=== PATIENT | male | born 1935 | race Caucasian/White ===

== ENCOUNTER 2019-03-09 17:09 | Observation (INO) | payer MEDICARE ==
--- NOTE | 2019-03-09 17:54 | Emergency Department Record ---
History of Present Illness - General Chief Complaint: Tremor Stated Complaint: TREMMORS Time Seen by Provider: 03/09/19 17:35 Source: Patient Mode of Arrival: Ambulatory Limitations: No limitations - History of Present Illness Initial comments: The patient is here due to worsening confusion and tremors for the last few days. The patient recently moved up to [place] from [place]. Per his daughter he has been having worsening confusion and tremors. The patient was seen at the this afternoon and it was recommended he be directly admitted to the hospital due to the tremors and elevated potassium. The patient did refuse the admission but then after going home he changed his mind and now is here in the ER to be admitted. There has been no hx of recent trauma, fever, vomiting, diarrhea, or back pain. The patient did have a CBC and CMP done this afternoon 4 hours ago and his potassium and CR were mildly elevated. Onset/Timin -: Days(s) - Suzanna Coma Scale Eye Response: (4) Open spontaneously Motor Response: (6) Obeys commands Verbal Response: (5) Oriented Suzanna Total: 15 - Related Data Allergies Allergy/AdvReac Type Severity Reaction Status Date / Time acyclovir Allergy HYPERSENSIT Unverified 03/09/19 17:46 IVITY rivaroxaban [From Xarelto] Allergy PT UNSURE Unverified 03/09/19 17:46 OF REACTION Travel Screening - Travel/Exposure Within Last 30 Days Have you traveled within the last 30 days?: No - Travel/Exposure Within Last Year Have you traveled outside the [place] in the last year?: No - Additonal Travel Details Have you been exposed to anyone with a communicable illness?: No - Travel Symptoms Symptom Screening: None Review of Systems Constitutional: Denies: Chills, Fever Eyes: Denies: Eye discharge ENT: Denies: Congestion Respiratory: Denies: Cough, Dyspnea Cardiovascular: Denies: Arrhythmia, Chest pain Endocrine: Reports: Fatigue Gastrointestinal: Denies: Nausea Genitourinary: Denies: Dysuria Musculoskeletal: Denies: Arthralgia Skin: Denies: Bruising Neurological: Reports: Confusion, Tremors Past Medical History - SOCIAL HISTORY Smoking Status: Never smoker Alcohol Use: None Drug Use: None - RESPIRATORY Hx Respiratory Disorders: No - CARDIOVASCULAR Hx Cardio Disorders: Yes Hx Cardiac Cath: Yes (2-3 stents) Hx Irregular Heartbeat: Yes (A-fib) - NEURO Hx Neuro Disorders: Yes Hx TIA: Yes (resolved) - GI Hx GI Disorders: Yes Hx Reflux: Yes Hx Rectal Bleeding: Yes (associated with blood thinners) - Hx Genitourinary Disorders: Yes Hx Renal Disease: Yes (elevated) - ENDOCRINE Hx Endocrine Disorders: Yes Hx Diabetes: No Hx Thyroid Disease: Yes - PSYCH Hx Psych Problems: Yes Hx Anxiety: Yes - HEMATOLOGY/ONCOLOGY Hx Hematology/Oncology Disorders: Yes Hx Blood Disorders: Yes Hx Cancer: No Family Medical History Any Significant Family History?: Yes Physical Exam - General General Appearance: Alert, Cooperative, No acute distress - Head Head exam: Atraumatic, Normocephalic - Eye Eye exam: Normal appearance, PERRL - ENT Throat exam: Normal inspection. negative: Tonsillar erythema, Tonsillar exudate - Neck Neck exam: Normal inspection, Full ROM. negative: Tenderness - Respiratory Respiratory exam: Normal lung sounds bilaterally. negative: Respiratory distress - Cardiovascular Cardiovascular Exam: Normal heart sounds, Irregular rhythm. negative: Tachycardia - GI/Abdominal GI/Abdominal exam: Soft, Normal bowel sounds. negative: Tenderness - Extremities Extremities exam: Normal inspection, Full ROM, Normal capillary refill. negative: Tenderness - Neurological Neurological exam: Alert, Other (The patient is having some facial spasms at times.). negative: Abnormal gait, Altered, Motor sensory deficit, Normal gait, Oriented X3 (The patient is only oriented to name and age.) - Psychiatric Psychiatric exam: negative: Anxious Course Vital Signs 03/09/19 03/09/19 17:27 17:32 Temperature 98.7 F 98.7 F Pulse Rate [ 106 H Pulse Ox Probe] Respiratory 20 Rate Blood Pressure 143/93 [Left Arm] Pulse Ox 96 - Reevaluation(s) Reevaluation #1: The patient is doing OK at this time. I did discuss the issues with the patient and he does agree to the admission. I also did review the lab work from this afternoon and did add coags and a UA. They are not done at this time so they will need to be completed during the admission. I also did discuss the case with Anna (ACTIVITIES SPECIALIST) and she had been planning on admitting the patient directly to the hospital but he refused. She is well aware of the issues and will check the Coags and UA after admitted. 03/09/19 19:05 Medical Decision Making - Data Complexity MDM Data: Labs Ordered and/or Reviewed, X-Ray Ordered and/or Reviewed, EKG Ordered and/or Reviewed - EKG Data -: EKG Interpreted by Me (Afib at 74, Neg ischemic changes.) - Radiology Data Radiology results: Report reviewed (Head CT: Neg for acute changes.) Disposition Disposition: Admit Clinical Impression: Tremors of nervous system Disposition: Still a Patient at [facility] Decision to Admit: Admit from ER Decision to Admit Date: 03/09/19 Decision to Admit Time: 19:12 Accepting Physician: Claribel Time Discussed w/Accepting Physician: 19:12 Condition: (2) Stable Forms: Patient Portal Access Time of Disposition: 19:12 Quality - Quality Measures Quality Measures: N/A - Blood Pressure Screening View Details: Yes Does Patient Have Any of the Following: Active Dx of HTN Blood Pressure Classification: Hypertensive Reading Systolic Measurement: 143 Diastolic Measurement: 93 Screening for High Blood Pressure: Patient Exclusion, Hx of HTN [[id number]]
--- NOTE | 2019-03-09 18:56 | CT SCAN REPORT ---
EXAMINATION: HEAD WO CONTRAST EXAM DATE: 03/09/2019 6:36 PM TECHNIQUE: Noncontrast axial images were obtained to the brain. INDICATION: confusion COMPARISON: None. ENCOUNTER: Not applicable. HAND DOMINANCE: Unknown FINDINGS: Low-attenuation areas in the periventricular and subcortical white matter. The brain parenchyma is o therwise unremarkable. No loss of strauss-white matter differentiation or sulcal effacement to indicate acute infarction. No evidence of intracranial mass. There is enlargement of the ventricles, sulci, and subarachnoid spaces. No hydrocephalus. There is arterial calcification. No intra-axial or extra-axial fluid collection. No evidence of intracranial hemorrhage. The paranasal sinuses, mastoid air cells, and orbits are unremarkable. Bilateral cataract surgery. T he calvarium is intact. IMPRESSION: 1. No CT evidence of intracranial hemorrhage or acute intracranial abnormality. 2. Extensive white matter hypoattenuation most commonly represents chronic microvascular ischemic d isease. 3. Moderate cerebral and cerebellar atrophy. Dictated by: LUKE SIMMS MD on 03/09/2019 6:47 PM. .
[2019-03-09 19:24] LABS: URINE APPEARANCE CLEAR; URINE BILIRUBIN NEGATIVE (NEGATIVE); URINE BLOOD NEGATIVE (NEGATIVE); URINE COLOR YELLOW; URINE GLUCOSE (UA) NEGATIVE (NEGATIVE); URINE KETONE NEGATIVE (NEGATIVE); URINE NITRITE NEGATIVE (NEGATIVE); URINE PROTEIN NEGATIVE (NEGATIVE); URINE UROBILINOGEN 0.2 E.U./dL (0.20 - 1.00)
[2019-03-09 19:26] LABS: URINE LEUKOCYTE ESTERASE SMALL (NEGATIVE)
[2019-03-09 19:26] LABS: INR 1.1; PROTHROMBIN TIME (PATIENT) 10.8 SECONDS (9.5-12.1)
[2019-03-09] MEDS ORDERED: ACETAMINOPHEN 325 MG TAB PO PRN (21:55)
[2019-03-09] MEDS ORDERED: DILTIAZEM HCL 120 MG ER CAPSULE PO SCH (21:55)
[2019-03-09] MEDS: MEMANTINE HCL 10 MG TABLET PO SCH (22:40)
[2019-03-10] MEDS ORDERED: LEVOTHYROXINE SODIUM 125 MCG TABLET PO SCH (07:00)
[2019-03-10] MEDS ORDERED: PANTOPRAZOLE SODIUM 40 MG TABLET PO SCH (07:00)
[2019-03-10 07:01] LABS: ABSOLUTE NEUTROPHIL COUNT 6.24; BASO % 0.3 % (0-6); EOS % 4.3 % (0-6); HEMATOCRIT 41.7 % (42.0-52.0); HEMOGLOBIN 12.7 gm/dl (14.0-18.0); LYMPH % 21.8 % (16-45); MEAN CELL VOLUME 92.3 fl (81-97); MEAN CORPUSCULAR HGB CONC 30.5 g/dl (32-36); MEAN PLATELET VOLUME 9.6 fl (7.4-10.4); MONO % 6.6 % (0-9); PLATELET COUNT 333 K/uL (130-400); RED BLOOD COUNT 4.52 M/uL (4.40-5.70); RED CELL DISTRIBUTION WIDTH 15.2 % (11.5-14.5); WHITE BLOOD COUNT W/O DIFF 9.3 K/uL (4.2-12.2)
[2019-03-10 07:15] LABS: CREATININE 1.3 mg/dL (0.7-1.2)
--- NOTE | 2019-03-10 08:43 | History & Physical ---
History of Present Illness - Date of Service Date of Service for History & Physical: 03/11/19 - History of Present Illness Admitting Diagnosis: 1. Acute Facial Spasms with confusion. History of Present Illness: The patient is here due to worsening confusion and tremors for the last few days. The patient recently moved up to [place] from [place]. Per his daughter he has been having worsening confusion and tremors and moved closer to family to help keep watch over him. He does live with a SO. The patient was seen at the this afternoon and it was recommended he be directly admitted to the hospital due to the tremors and elevated potassium. The patient did refuse the admission but then after going home he changed his mind and now is here in the ER to be admitted. There has been no hx of recent trauma, fever, vomiting, diarrhea, or back pain. The patient did have a CBC and CMP done this afternoon 4 hours ago and his potassium and CR were mildly elevated. No hx of DM or HTN. There is history of TIA per family report without any residual effect. He is anticoagulated for a-fib. Patient and partner report about a month ago in his sleep his arms became straight and stiff as boards and was spasming and shaking in his sleep. Yesterday he began having tremoring to arms, legs and face. No autonomic disorders, no family hx tremor. No new medications, supplements, dose changes. No seizure history. No nausea, vomiting, diarrhea, cough outside of usual morning cough to clear his throat. NO falls, LOC. ED work up unremarkable for acute infection, CT head shows significant atrophy without any acute process. He was admitted for monitoring of tremors/spasming and repeat labs. PCP: Dr Sanford PAST MEDICAL/SURGICAL HISTORY Past Surgical History mell rt knee replacement lt hip replacement with complicated infections PMH - Respiratory Hx Respiratory Disorders No PMH - Cardiovascular Hx Cardiovascular Disorders Yes Hx Abnormal EKG Yes Hx Cardiac Catheterization Yes: 2-3 stents Hx Irregular Heartbeat Yes: A-fib Hx Transient Ischemic Attacks Yes: resolved (TIA) PMH - Neuro Hx Neurological Disorders Yes Hx Dementia Yes Hx Transient Ischemic Attacks Yes: resolved (TIA) PMH - GI Hx Gastrointestinal Disorders Yes Hx Gastroesophageal Reflux Yes Hx Rectal Bleeding Yes: associated with blood thinners PMH - Hx Genitourinary Disorders Yes Hx Renal Disease Yes: elevated PMH - Endocrine Hx Endocrine Disorders Yes Hx Diabetes No Hx Thyroid Disease No PMH - Musculoskeletal Hx Musculoskeletal Disorders Yes Hx Arthritis Yes Comment: left hip replacement PMH - Psych Hx Psychiatric Problems Yes Hx Anxiety Yes Hx Depression Yes PMH - Hematology/Oncology Hx Hematology/Oncology Yes Disorders Hx Blood Disorders Yes Hx Cancer No Laboratory Results WBC 9.3 K/uL (4.2-12.2) 03/10/19 06:35 RBC 4.52 M/uL (4.40-5.70) 03/10/19 06:35 Hgb 12.7 gm/dl (14.0-18.0) L 03/10/19 06:35 Hct 41.7 % (42.0-52.0) L 03/10/19 06:35 MCV 92.3 fl (81-97) 03/10/19 06:35 MCH 28.0 pg (27-33) 03/10/19 06:35 MCHC 30.5 g/dl (32-36) L 03/10/19 06:35 RDW 15.2 % (11.5-14.5) H 03/10/19 06:35 Plt Count 333 K/uL (130-400) 03/10/19 06:35 MPV 9.6 fl (7.4-10.4) 03/10/19 06:35 Gran % 67.0 % (47-80) 03/10/19 06:35 Lymphocytes % 21.8 % (16-45) 03/10/19 06:35 Monocytes % 6.6 % (0-9) 03/10/19 06:35 Eosinophils % 4.3 % (0-6) 03/10/19 06:35 Basophils % 0.3 % (0-6) 03/10/19 06:35 Absolute Neutrophils 6.24 03/10/19 06:35 PT 10.8 SECONDS (9.5-12.1) 03/09/19 18:15 INR 1.1 03/09/19 18:15 APTT 32.0 SECONDS (24.5-39.1) 03/09/19 18:15 Sodium 141 mmol/L (136-145) 03/10/19 06:35 Potassium 4.7 mmol/L (3.4-4.5) H 03/10/19 06:35 Chloride 105 mmol/L (98-107) 03/10/19 06:35 Carbon Dioxide 23.0 mmol/L (22-29) 03/10/19 06:35 Anion Gap 13.0 (7-16) 03/10/19 06:35 BUN 23 mg/dL (8-23) 03/10/19 06:35 Creatinine 1.3 mg/dL (0.7-1.2) H 03/10/19 06:35 Estimated GFR 56 mL/min 03/10/19 06:35 Random Glucose 110 mg/dL (74-109) H 03/10/19 06:35 Calcium 9.1 mg/dL (8.8-10.2) 03/10/19 06:35 Urine Color Yellow 03/09/19 19:10 Urine Appearance Clear 03/09/19 19:10 Urine pH 6.0 (5.0-8.0) 03/09/19 19:10 Ur Specific [place] 1.020 (1.002-1.030) 03/09/19 19:10 Urine Protein Negative (NEGATIVE) 03/09/19 19:10 Urine Glucose (UA) Negative (NEGATIVE) 03/09/19 19:10 Urine Ketones Negative (NEGATIVE) 03/09/19 19:10 Urine Blood Negative (NEGATIVE) 03/09/19 19:10 Urine Nitrite Negative (NEGATIVE) 03/09/19 19:10 Urine Bilirubin Negative (NEGATIVE) 03/09/19 19:10 Urine Urobilinogen 0.2 E.U./dL (0.20 - 1.00) 03/09/19 19:10 Ur Leukocyte Esterase Small (NEGATIVE) H 03/09/19 19:10 Vital Signs - Last 24 Hrs Temp Pulse Pulse Resp BP BP Pulse Ox 03/10/19 05:00 98.2 F 77 18 124/82 94 L 03/09/19 23:55 97.7 F 90 18 138/100 94 L 03/09/19 21:55 98.2 F 87 20 157/87 96 03/09/19 21:15 99.1 F 76 20 132/86 97 03/09/19 19:22 83 20 141/89 97 03/09/19 17:32 98.7 F 03/09/19 17:27 98.7 F 106 H 20 143/93 96 Travel Screening - Travel/Exposure Within Last 30 Days Have you traveled within the last 30 days?: No - Travel/Exposure Within Last Year Have you traveled outside the [place] in the last year?: No - Additonal Travel Details Have you been exposed to anyone with a communicable illness?: No - Travel Symptoms Symptom Screening: None Review of Systems Constitutional: Denies: Chills, Fever Eyes: Denies: Eye discharge ENT: Denies: Congestion Respiratory: Denies: Cough, Dyspnea Cardiovascular: Denies: Arrhythmia, Chest pain Endocrine: Reports: Fatigue Gastrointestinal: Denies: Nausea Genitourinary: Denies: Dysuria Musculoskeletal: Denies: Arthralgia Skin: Denies: Bruising Neurological: Reports: Confusion, Tremors Past Medical History - SOCIAL HISTORY Smoking Status: Former smoker Alcohol Use: Occasional Drug Use: None - RESPIRATORY Hx Respiratory Disorders: No - CARDIOVASCULAR Hx Cardio Disorders: Yes Hx Abnormal EKG: Yes Hx Cardiac Cath: Yes (2-3 stents) Hx Irregular Heartbeat: Yes (A-fib) - NEURO Hx Neuro Disorders: Yes Hx Dementia: Yes Hx TIA: Yes (resolved) - GI Hx GI Disorders: Yes Hx Reflux: Yes Hx Rectal Bleeding: Yes (associated with blood thinners) - Hx Genitourinary Disorders: Yes Hx Renal Disease: Yes (elevated) - ENDOCRINE Hx Endocrine Disorders: Yes Hx Diabetes: No Hx Thyroid Disease: No - MUSCULOSKELETAL Hx Musculoskeletal Disorders: Yes Hx Arthritis: Yes Comment:: left hip replacement - PSYCH Hx Psych Problems: Yes Hx Anxiety: Yes Hx Depression: Yes - HEMATOLOGY/ONCOLOGY Hx Hematology/Oncology Disorders: Yes Hx Blood Disorders: Yes Hx Cancer: No Family Medical History Any Significant Family History?: Yes Family Hx Comment (NOT TO BE USED IN PLACE OF ITEMS BELOW): poor historian? answers "I don't think so" to most family medical hx questions. Hx Alcohol Use: Brother/Sister H&P Meds/Allergies - Allergies Allergies: Allergies Allergy/AdvReac Type Severity Reaction Status Date / Time acyclovir Allergy HYPERSENSIT Unverified 03/09/19 17:46 IVITY rivaroxaban [From Xarelto] Allergy PT UNSURE Unverified 03/09/19 17:46 OF REACTION - Active Medications Active Medications: Current Medications Acetaminophen (Tylenol 325mg) 650 mg PO Q6H PRN PRN Reason: PAIN - MILD(1-4)/FEVER Aspirin (Ecotrin (Ec)) 81 mg PO DAILY [facility] Atorvastatin Calcium (Lipitor) 40 mg PO DAILY [facility] Diltiazem HCl (Cardizem Cd) 240 mg PO QD [facility] Last Admin: 03/09/19 22:39 Dose: 240 mg Documented by: Folic Acid () 0.5 mg PO DAILY [facility] Levothyroxine Sodium (Synthroid) 125 mcg PO DAILYAC [facility] Last Admin: 03/10/19 06:26 Dose: 125 mcg Documented by: Memantine (Namenda) 10 mg PO BID [facility] Last Admin: 03/09/19 22:40 Dose: 10 mg Documented by: Non-Formulary Medication (Dabigatran Etexilate Mesylate [Pradaxa]) 150 mg PO DAILY [facility] Non-Formulary Medication (Sertraline Hcl [Sertraline Hcl]) 100 mg PO DAILY [facility] Pantoprazole Sodium (Protonix) 40 mg PO DAILYAC [facility] Last Admin: 03/10/19 06:26 Dose: 40 mg Documented by: Physical Exam - Vital Signs Vital Signs: Vital Signs - Last 24 Hrs Temp Pulse Pulse Resp BP BP Pulse Ox 03/10/19 05:00 98.2 F 77 18 124/82 94 L 03/09/19 23:55 97.7 F 90 18 138/100 94 L 03/09/19 21:55 98.2 F 87 20 157/87 96 03/09/19 21:15 99.1 F 76 20 132/86 97 03/09/19 19:22 83 20 141/89 97 03/09/19 17:32 98.7 F 03/09/19 17:27 98.7 F 106 H 20 143/93 96 - General General Appearance: Alert, Cooperative, No acute distress Limitations: No limitations - Head Head exam: Atraumatic, Normocephalic - Eye Eye exam: Normal appearance, PERRL, EOMI Pupils: Normal accommodation - ENT ENT exam: Normal exam Throat exam: Normal inspection. negative: Tonsillar erythema, Tonsillar exudate - Neck Neck exam: Normal inspection, Full ROM. negative: Tenderness - Respiratory Respiratory exam: Normal lung sounds bilaterally. negative: Respiratory distress - Cardiovascular Cardiovascular Exam: Normal heart sounds, Irregular rhythm (rate controlled). negative: Tachycardia Peripheral Pulses: 2+: Radial (R), Radial (L) - GI/Abdominal GI/Abdominal exam: Soft, Normal bowel sounds. negative: Tenderness - Extremities Extremities exam: Normal inspection, Full ROM, Normal capillary refill, Other (intermittent but persistent uncontrollable spasticity, resting tremor of hand and tremor with fine and gross movement). negative: Tenderness - Neurological Neurological exam: Abnormal gait (walks unsteadily with a cane but does not lose balance), Alert, CN II-XII intact, Other (The patient is having some facial spasms at times.). negative: Altered, Motor sensory deficit, Normal gait - Psychiatric Psychiatric exam: Flat affect, Normal affect, Normal mood. negative: Anxious Results - Labs Result Diagrams: 03/10/19 06:35 03/10/19 06:35 Labs Last 24 Hours: Laboratory Results - last 24 hr 03/09/19 03/09/19 03/10/19 18:15 19:10 06:35 WBC RBC Hgb Hct MCV MCH MCHC RDW Plt Count MPV Gran % Lymphocytes % Monocytes % Eosinophils % Basophils % Absolute Neutrophils PT 10.8 INR 1.1 APTT 32.0 Sodium 141 Potassium 4.7 H Chloride 105 Carbon Dioxide 23.0 Anion Gap 13.0 BUN 23 Creatinine 1.3 H Estimated GFR 56 Random Glucose 110 H Calcium 9.1 Urine Color Yellow Urine Appearance Clear Urine pH 6.0 Ur Specific [place] 1.020 Urine Protein Negative Urine Glucose (UA) Negative Urine Ketones Negative Urine Blood Negative Urine Nitrite Negative Urine Bilirubin Negative Urine Urobilinogen 0.2 Ur Leukocyte Esterase Small H 03/10/19 06:35 WBC 9.3 RBC 4.52 Hgb 12.7 L Hct 41.7 L MCV 92.3 MCH 28.0 MCHC 30.5 L RDW 15.2 H Plt Count 333 MPV 9.6 Gran % 67.0 Lymphocytes % 21.8 Monocytes % 6.6 Eosinophils % 4.3 Basophils % 0.3 Absolute Neutrophils 6.24 PT INR APTT Sodium Potassium Chloride Carbon Dioxide Anion Gap BUN Creatinine Estimated GFR Random Glucose Calcium Urine Color Urine Appearance Urine pH Ur Specific [place] Urine Protein Urine Glucose (UA) Urine Ketones Urine Blood Urine Nitrite Urine Bilirubin Urine Urobilinogen Ur Leukocyte Esterase - Imaging and Cardiology CT scan - head Status: Report reviewed VTE H&P Assessment - Risk for VTE Risk for VTE: Yes Risk Level: Moderate Risk Assessment Date: 03/10/19 Risk Assessment Time: 08:42 VTE Orders Placed or Will Be Placed: Yes Plan - Detailed Diagnosis and Plan (1) Tremors of nervous system Status: Acute Base Code: R25.1 - TREMOR, UNSPECIFIED Comment: 03/10/19 - No acute findings on CT of head, neurological exam normal, lab work unremarkable outside of mildly elevated potassium (4.7) and evidence of mild renal insufficiency - Family reports he has recently moved to [place] from [place] due to worsening of cognition and tremors- although patietn and SO report the tremors began 2 days ago - Tremors may be related to undiagnosed autonomic disorder or sequela of significant atrophy of brain on CT - Will need neurolgy referral as outpatient - Home PT/OT/Nursing eval recommended (2) Brain atrophy Status: Acute Base Code: G31.9 - DEGENERATIVE DISEASE OF NERVOUS SYSTEM, UNSPECIFIED (3) Atrial fibrillation Status: Acute Qualifiers: Atrial fibrillation type: longstanding persistent Qualified Code(s): I48.11 - Longstanding persistent atrial fibrillation Base Code: I48.91 - UNSPECIFIED ATRIAL FIBRILLATION Comment: 03/10/19 - Pradaxa and Cardizem (4) DVT prophylaxis Status: Acute Base Code: Z29.9 - ENCOUNTER FOR PROPHYLACTIC MEASURES, UNSPECIFIED Comment: 03/10/19 - On Pradaxa for a-fib (5) Full code status Status: Acute Base Code: Z78.9 - OTHER SPECIFIED HEALTH STATUS
[2019-03-10] MEDS ORDERED: ATORVASTATIN 20 MG TABLET PO SCH (10:00)
[2019-03-10] MEDS ORDERED: ASPIRIN 81 MG TABEC PO SCH (10:00)
[2019-03-10] MEDS ORDERED: DABIGATRAN ETEXILATE MESYLATE 150 MG PO SCH (10:00)
[2019-03-10] MEDS ORDERED: SERTRALINE HCL 100 MG PO SCH (10:00)
[2019-03-10] MEDS ORDERED: FOLIC ACID 1 MG TABLET PO SCH (10:00)
[2019-03-10] MEDS: MEMANTINE HCL 10 MG TABLET PO SCH (10:14)
--- NOTE | 2019-03-10 11:32 | Discharge Summary ---
Providers Discharge Summary Date: 03/10/19 Date of admission: 03/09/19 21:21 Expected Date of Discharge: 03/10/19 Attending physician: STACIA SANFORD Primary care physician: STACIA SANFORD Physical Exam - Vital Signs Vital Signs: Vital Signs - Last 24 Hrs Temp Pulse Pulse Resp BP BP Pulse Ox 03/10/19 05:00 98.2 F 77 18 124/82 94 L 03/09/19 23:55 97.7 F 90 18 138/100 94 L 03/09/19 21:55 98.2 F 87 20 157/87 96 03/09/19 21:15 99.1 F 76 20 132/86 97 03/09/19 19:22 83 20 141/89 97 03/09/19 17:32 98.7 F 03/09/19 17:27 98.7 F 106 H 20 143/93 96 - General General Appearance: Alert, Cooperative, No acute distress Limitations: No limitations - Head Head exam: Atraumatic, Normocephalic - Eye Eye exam: Normal appearance, PERRL - ENT Throat exam: Normal inspection. negative: Tonsillar erythema, Tonsillar exudate - Neck Neck exam: Normal inspection, Full ROM. negative: Tenderness - Respiratory Respiratory exam: Normal lung sounds bilaterally. negative: Respiratory distress - Cardiovascular Cardiovascular Exam: Normal heart sounds, Irregular rhythm. negative: Tachycardia - GI/Abdominal GI/Abdominal exam: Soft, Normal bowel sounds. negative: Tenderness - Extremities Extremities exam: Normal inspection, Full ROM, Normal capillary refill. negative: Tenderness - Neurological Neurological exam: Alert, Other (The patient is having some facial spasms at times.). negative: Abnormal gait, Altered, Motor sensory deficit, Normal gait, Oriented X3 (The patient is only oriented to name and age.) - Psychiatric Psychiatric exam: negative: Anxious Hospitalization - Hospitalization Admission Diagnosis: 1. Acute Facial Spasms with confusion. - Problem List/Discharge Diagnosis (1) Tremors of nervous system Status: Acute Base Code: R25.1 - TREMOR, UNSPECIFIED Comment: 03/10/19 - No acute findings on CT of head, neurological exam normal, lab work unremarkable outside of mildly elevated potassium (4.7) and evidence of mild renal insufficiency - Family reports he has recently moved to [place] from [place] due to worsening of cognition and tremors- although patietn and SO report the tremors began 2 days ago - Tremors may be related to undiagnosed autonomic disorder or sequela of significant atrophy of brain on CT - Will need neurolgy referral as outpatient - Home PT/OT/Nursing eval recommended (2) Brain atrophy Status: Acute Base Code: G31.9 - DEGENERATIVE DISEASE OF NERVOUS SYSTEM, UNSPECIFIED (3) Atrial fibrillation Status: Acute Discharge Diagnosis: Atrial fibrillation type: longstanding persistent Qualified Code(s): I48.11 - Longstanding persistent atrial fibrillation Base Code: I48.91 - UNSPECIFIED ATRIAL FIBRILLATION Comment: 03/10/19 - EKG in ED a-fib with controlled rate - Pradaxa and Cardizem - Rate controlled on current regimen (4) Renal insufficiency Status: Acute Base Code: N28.9 - DISORDER OF KIDNEY AND URETER, UNSPECIFIED Comment: 03/10/19 - Appears be chronic, mild. BUN 23, Cr 1.3, GFR 56, potassium 4.7 with no acute changed on EKG - No hx diabetes, no proteinuriea - Likely due to mild HTN, he is on Cardizem for a-fib - Declined any further work up (renal u/s) or initiation of KELLI for renal protec tion (5) DVT prophylaxis Status: Acute Base Code: Z29.9 - ENCOUNTER FOR PROPHYLACTIC MEASURES, UNSPECIFIED Comment: 03/10/19 - On Pradaxa for a-fib (6) Full code status Status: Acute Base Code: Z78.9 - OTHER SPECIFIED HEALTH STATUS - Hospitalization Course Disposition: Home, Self-Care Hospital Course: The patient is here due to worsening confusion and tremors for the last few days. The patient recently moved up to [place] from [place]. Per his daughter he has been having worsening confusion and tremors and moved closer to family to help keep watch over him. He does live with a SO. The patient was seen at the this afternoon and it was recommended he be directly admitted to the hospital due to the tremors and elevated potassium. The patient did refuse the admission but then after going home he changed his mind and now is here in the ER to be admitted. There has been no hx of recent trauma, fever, vomiting, diarrhea, or back pain. The patient did have a CBC and CMP done this afternoon 4 hours ago and his potassium and CR were mildly elevated. No hx of DM or HTN. There is history of TIA per family report without any residual effect. He is anticoagulated for a-fib. Patient and partner report about a month ago in his sleep his arms became straight and stiff as boards and was spasming and shaking in his sleep. Yesterday he began having tremoring to arms, legs and face. No autonomic disorders, no family hx tremor. No new medications, supplements, dose changes. No seizure history. No nausea, vomiting, diarrhea, cough outside of usual morning cough to clear his throat. NO falls, LOC. ED work up unremarkable for acute infection, CT head shows significant atrophy without any acute process. He was admitted for monitoring of tremors/spasming and repeat labs. PCP: Dr Sanford PAST MEDICAL/SURGICAL HISTORY Past Surgical History mell rt knee replacement lt hip replacement with complicated infections PMH - Respiratory Hx Respiratory Disorders No PMH - Cardiovascular Hx Cardiovascular Disorders Yes Hx Abnormal EKG Yes Hx Cardiac Catheterization Yes: 2-3 stents Hx Irregular Heartbeat Yes: A-fib Hx Transient Ischemic Attacks Yes: resolved (TIA) PMH - Neuro Hx Neurological Disorders Yes Hx Dementia Yes Hx Transient Ischemic Attacks Yes: resolved (TIA) PMH - GI Hx Gastrointestinal Disorders Yes Hx Gastroesophageal Reflux Yes Hx Rectal Bleeding Yes: associated with blood thinners PMH - Hx Genitourinary Disorders Yes Hx Renal Disease Yes: elevated PMH - Endocrine Hx Endocrine Disorders Yes Hx Diabetes No Hx Thyroid Disease No PMH - Musculoskeletal Hx Musculoskeletal Disorders Yes Hx Arthritis Yes Comment: left hip replacement PMH - Psych Hx Psychiatric Problems Yes Hx Anxiety Yes Hx Depression Yes PMH - Hematology/Oncology Hx Hematology/Oncology Yes Disorders Hx Blood Disorders Yes Hx Cancer No Laboratory Results WBC 9.3 K/uL (4.2-12.2) 03/10/19 06:35 RBC 4.52 M/uL (4.40-5.70) 03/10/19 06:35 Hgb 12.7 gm/dl (14.0-18.0) L 03/10/19 06:35 Hct 41.7 % (42.0-52.0) L 03/10/19 06:35 MCV 92.3 fl (81-97) 03/10/19 06:35 MCH 28.0 pg (27-33) 03/10/19 06:35 MCHC 30.5 g/dl (32-36) L 03/10/19 06:35 RDW 15.2 % (11.5-14.5) H 03/10/19 06:35 Plt Count 333 K/uL (130-400) 03/10/19 06:35 MPV 9.6 fl (7.4-10.4) 03/10/19 06:35 Gran % 67.0 % (47-80) 03/10/19 06:35 Lymphocytes % 21.8 % (16-45) 03/10/19 06:35 Monocytes % 6.6 % (0-9) 03/10/19 06:35 Eosinophils % 4.3 % (0-6) 03/10/19 06:35 Basophils % 0.3 % (0-6) 03/10/19 06:35 Absolute Neutrophils 6.24 03/10/19 06:35 PT 10.8 SECONDS (9.5-12.1) 03/09/19 18:15 INR 1.1 03/09/19 18:15 APTT 32.0 SECONDS (24.5-39.1) 03/09/19 18:15 Sodium 141 mmol/L (136-145) 03/10/19 06:35 Potassium 4.7 mmol/L (3.4-4.5) H 03/10/19 06:35 Chloride 105 mmol/L (98-107) 03/10/19 06:35 Carbon Dioxide 23.0 mmol/L (22-29) 03/10/19 06:35 Anion Gap 13.0 (7-16) 03/10/19 06:35 BUN 23 mg/dL (8-23) 03/10/19 06:35 Creatinine 1.3 mg/dL (0.7-1.2) H 03/10/19 06:35 Estimated GFR 56 mL/min 03/10/19 06:35 Random Glucose 110 mg/dL (74-109) H 03/10/19 06:35 Calcium 9.1 mg/dL (8.8-10.2) 03/10/19 06:35 Urine Color Yellow 03/09/19 19:10 Urine Appearance Clear 03/09/19 19:10 Urine pH 6.0 (5.0-8.0) 03/09/19 19:10 Ur Specific [place] 1.020 (1.002-1.030) 03/09/19 19:10 Urine Protein Negative (NEGATIVE) 03/09/19 19:10 Urine Glucose (UA) Negative (NEGATIVE) 03/09/19 19:10 Urine Ketones Negative (NEGATIVE) 03/09/19 19:10 Urine Blood Negative (NEGATIVE) 03/09/19 19:10 Urine Nitrite Negative (NEGATIVE) 03/09/19 19:10 Urine Bilirubin Negative (NEGATIVE) 03/09/19 19:10 Urine Urobilinogen 0.2 E.U./dL (0.20 - 1.00) 03/09/19 19:10 Ur Leukocyte Esterase Small (NEGATIVE) H 03/09/19 19:10 Vital Signs - Last 24 Hrs Temp Pulse Pulse Resp BP BP Pulse Ox 03/10/19 05:00 98.2 F 77 18 124/82 94 L 03/09/19 23:55 97.7 F 90 18 138/100 94 L 03/09/19 21:55 98.2 F 87 20 157/87 96 03/09/19 21:15 99.1 F 76 20 132/86 97 03/09/19 19:22 83 20 141/89 97 03/09/19 17:32 98.7 F 03/09/19 17:27 98.7 F 106 H 20 143/93 96 03/10/19 Hospital course unremarkable. Patient admitted for report of 2 day history of facial and arm tremors and spastic movements. Lab work at that time negative for acute infection, potassium slightly elevated at 5.3, mild renal insufficiency, TSH normal. He was seen in [facility] for this and advise direct admit for further work up to rule out acute brain process, he declined after risks provided and left AMA. He returned to ED later that day and willing to be rechecked again and admitted if necessary. ED work up at that time essentially unchanged. CT brain showed significant atrophy. He was admitted for observation and recheck of blood work in the morning. Repeat blood work essentially unchanged. Tremors to face and spastic movements to arms remain intermittent although were slightly improved. Patient reports of symptoms differ from that of the family's in which the son-in-law reported the tremors and spastic movements have been going on for some time, have been slowly worsening, and had him and SO move to [place] from [place] to help watch over his health. Overall presentation seems to reflect a dementia process, chronic renal insufficiency with mildly elevated potassium, mildly elevated blood pressure. He declined further treatment with KELLI for renal protection or renal ultrasound. It was advised upon discharge to restrict potassium-rich foods, follow up with PCP in 1 week and possible neurology referral. Procedures: Imaging and X-Rays 03/09/19 18:01 HEAD WO CONTRAST [CT] Stat Cardiology Procedures 03/09/19 18:01 EKG NOW Abnormal Labs: Abnormal Lab Results 03/09/19 03/10/19 03/10/19 Range/Units 19:10 06:35 06:35 Hgb 12.7 L (14.0-18.0) gm/dl Hct 41.7 L (42.0-52.0) % MCHC 30.5 L (32-36) g/dl RDW 15.2 H (11.5-14.5) % Potassium 4.7 H (3.4-4.5) mmol/L Creatinine 1.3 H (0.7-1.2) mg/dL Random Glucose 110 H (74-109) mg/dL Ur Leukocyte Esterase Small H (NEGATIVE) Condition at Discharge: (2) Stable Discharge Medications - Discharge Medications Home Medications: Ambulatory Orders Aspirin [Low Dose Aspirin EC] 81 mg PO DAILY tab.dr 09/28/18 [Last Taken 1 Day Ago ~03/08/19] Cholecalciferol (Vitamin D3) [D3-2000] 2,000 unit PO DAILY cap 09/28/18 [Last Taken 1 Day Ago ~03/08/19] Folic Acid 0.4 mg PO QD tab 09/28/18 [Last Taken 1 Day Ago ~03/08/19] Levothyroxine Sodium 125 mcg PO DAILY 90 Days #90 tab 09/28/18 [Last Taken 1 Day Ago ~03/08/19] Memantine HCl 10 mg PO BID 30 Days #60 tab 09/28/18 [Last Taken 1 Day Ago ~03/08] Multivitamin [Multi-Vitamin Daily] 1 each PO DAILY tab 09/28/18 [Last Taken 1 Day Ago ~03/08/19] Sertraline HCl 100 mg PO QD 90 Days #90 ml 09/28/18 [Last Taken 1 Day Ago ~03/08/19] Discharge Plan - Discharge Instructions Activity at Discharge: Increase Activity as Tolerated Diet at Discharge: Advance to Usual Diet Additional Instructions: Follow up with PCP on next scheduled appointment (possibly 03/20/19) [facility] [employer] Specialist to call you next week to confirm appointment follow up Will need repeat labs to follow chronic kidney disease as well as possible neurology referral for limb and facial spasticity Quality Measures - Quality Measures Quality Measures: Atrial Fibrillation & Atrial Flutter: Chronic Anticoagulation Therapy, Advance Directives, Documentation of Current Medications in Medical Record, Elder Maltreatment Screen and Follow-Up Plan, Screening for High Blood Pressure and F/U Documented - Current Medications Quality Measure: Measure #130: Documentation of Current Medications Documentation of Current Medications: <Current Medications Documented/Reviewed> [G8427] - Blood Pressure Screening Quality Measure: Screening for High Blood Pressure and Follow-Up Documented Does Patient Have Any of the Following: No Blood Pressure Classification: Pre-Hypertensive BP Reading Systolic Measurement: 132 Diastolic Measurement: 86 Screening for High Blood Pressure: < Pre-Hypertensive BP, F/U Documented > [G8950] Pre-Hypertensive Follow-up Interventions: Referral to alternative/primary care provider. - Atrial Fibrillation and Atrial Flutter Quality Measure: Atrial Fibrillation & Atrial Flutter: Chronic Anticoagulation Therapy Does Patient Have Any of the Following: No CHADS2 Risk Stratification: Prior Stroke/TIA or Systemic Embolism, Age 75 or Greater Risk Stratification Summary: One or more high risk factors OR more than one moderate risk factor exists. [G8972] Anticoagulation Therapy: <Oral anticoagulant Prescribed> [G8967] - Advance Directives Quality Measure: Measure #47: Care Plan Advance Directives Established: No Advance Directives Information Provided To Patient: No Advance Directives on File: No Living Will: Yes Power of Rn Sane: Yes Power of Rn Sane Name: Leann Kan Advance Care Planning: <Care Plan/Decision Maker Documented; Discussed & Documented> [[id number]] - Elder Abuse Suspicion Index Screening: Elder Abuse Suspicion Index Screening Rely on people for bathing, dressing, shopping, banking, etc: No Prevented from getting food, clothes, medication, etc: No Made to feel shamed or threatened by someone: No Forced to sign papers or use money against will: No Feel afraid, touched in ways not wanted or hurt physically: No Poor eye contact, withdrawn, malnourished, cuts or bruises: No Screening Result: Negative result EASI Reference Information: Leydi LOGAN, Paola C, Shankar D, Daron Gomez.Development and validation of a tool to assist physicians identification of elder abuse: The Elder Abuse Suspicion Index (EASI ). Journal of Elder Abuse and Neglect, 2008; 20 (3): 276-300. - Elder Maltreatment Screen Quality Measures: Elder Maltreatment Screen and Follow-Up Plan Elder Maltreatment Screen: <Negative, No Follow-Up Plan Required> [G8734]
== END 2019-03-10 12:11 | disposition home or self-care (01) ==
LOC: ER 17:09 → MEDSURG 21:21
PROVIDERS: ADMIT Internal Medicine; ATTEND Internal Medicine
DX: R25.1 Tremor, unspecified (principal); M62.838 Other muscle spasm; G31.9 Degenerative disease of nervous system, unspecified; I48.11 Longstanding persistent atrial fibrillation; Z79.01 Long term (current) use of anticoagulants; N28.9 Disorder of kidney and ureter, unspecified; E03.9 Hypothyroidism, unspecified; Z95.5 Presence of coronary angioplasty implant and graft; Z86.73 Personal history of transient ischemic attack (TIA), and cerebral infarction without residual deficits
CPT/HCPCS: 85025 ×2; 85730; 85610; 80048; 80053; 81003; 84443; 70450; 93005; 93010; G0378 ×2; 99220; 99285